=== PATIENT | female | born 1965 | race African-American/Black ===

== ENCOUNTER 2024-02-24 21:53 | Emergency (ER) | payer OTHER ==
[~2024-02-24] VITALS: Ht 157.5 cm; Wt 46.0 kg
[2024-02-24 22:17] VITALS: O2SAT 99
[2024-02-24 23:09] LABS: BASOPHILS % 0.2 % (0.0-2.0); HEMATOCRIT. 41.4 % (36.0-48.0); HEMOGLOBIN. 13.9 g/dL (12.0-16.0); LYMPHOCYTES % 8.3 % (20.0-50.0); MEAN CORPUSCULAR HEMOGLOBIN 28.6 pg (28.0-32.0); MEAN CORPUSCULAR HGB CONC 33.5 g/dL (31.0-37.0); MEAN CORPUSCULAR VOLUME 85.3 fL (81.0-99.0); MEAN PLATELET VOLUME 7.7 fl (7.4-10.4); MONOCYTES % 3.2 % (2.0-8.0); NEUTROPHILS % 88.3 % (40.0-76.0); PLATELET 255 x1000/uL (130-400); RED BLOOD CELL COUNT 4.86 mill/uL (4.2-5.4); RED CELL DISTRIBUTION WIDTH 13.1 % (11.6-14.6); WHITE BLOOD COUNT 13.9 x1000/uL (4.5-11.0)
[2024-02-24 23:14] LABS: CHLORIDE 99 mEq/L (98-107); POTASSIUM 4.5 mEq/L (3.5-5.1); SODIUM 133 mEq/L (136-145)
[2024-02-24 23:15] LABS: CALCIUM 10.4 mg/dL (8.7-10.4); CARBON DIOXIDE 21 mEq/L (21-32)
[2024-02-24 23:20] LABS: CREATININE 0.9 mg/dL (0.6-1.0); GLUCOSE 92 mg/dL (70-105); UREA NITROGEN BLOOD 9 mg/dL (9-23)
[2024-02-24 23:23] LABS: TROPONIN I HIGH SENSITIVITY 36 ng/L (3.0-34)
[2024-02-24] MEDS: KETOROLAC 60MG/2ML VIAL IM ONE (23:48)
[2024-02-24] MEDS: ONDANSETRON 4MG ODT PO ONE (23:48)
[2024-02-25 00:21] LABS: HCG SCREEN NEGATIVE
[2024-02-25 01:08] LABS: TROPONIN I HIGH SENSITIVITY 27 ng/L (3.0-34)
[2024-02-25 03:28] VITALS: BP 148/69; PULSE 74; RESP 13; TEMP 98.3
== END 2024-02-25 03:45 | disposition short-term general hospital (02) ==
LOC: ER 21:53 → EDBEDREQ 02-25 03:30 → EDBEDREQTM 02-25 03:30 → ER 02-25 03:45 → CANBEDREQ 02-26 21:08
DX: R79.89 Other specified abnormal findings of blood chemistry (principal); R07.9 Chest pain, unspecified
CPT/HCPCS: 99285; 71045; 80048; 84703; 85025; 84484 ×2; 36415; 93005; 96372; Q0162; J1885